=== PATIENT | female | born 1975 | race Caucasian/White ===

== ENCOUNTER → 2020-05-22 | Outpatient (CLI) | payer OTHER ==
[~2020-05-22] MED LIST: OMNIPAQUE 350 MG/ML, 100ML BOTTLE ONE
== END | disposition home or self-care (01) ==
LOC: RAD 16:40
PROVIDERS: ATTEND Physician Assistant
DX: E04.1 Nontoxic single thyroid nodule (principal); R22.0 Localized swelling, mass and lump, head; G43.109 Migraine with aura, not intractable, without status migrainosus
CPT/HCPCS: 70491; Q9967

== ENCOUNTER 2020-07-23 05:57 | Day surgery (SDC) | payer OTHER ==
[~2020-07-23] VITALS: Ht 157.5 cm; Wt 133.4 kg
[2020-07-23] MEDS ORDERED: CHLORHEXIDINE 15 ML UDC ONE (06:17)
[2020-07-23] MEDS ORDERED: MIDAZOLAM 1 MG/ML, 2ML ONE (06:35)
[2020-07-23] MEDS ORDERED: FENTANYL PF 250 MCG/5ML ONE ×2 (06:35→07:56)
[2020-07-23 06:39] VITALS: BP 115/83
[2020-07-23 06:45] LABS: HCG UR SG 1.025 (1.003-1.030)
[2020-07-23] MEDS ORDERED: CETI10CA PO (06:52)
[2020-07-23] MEDS ORDERED: LORAZEPAM PO (06:52)
[2020-07-23] MEDS ORDERED: PROZAC PO (06:52)
[2020-07-23] MEDS ORDERED: OXYcodone 5 MG/5 ML ORAL.SOL UDC PO PRN (07:00)
[2020-07-23] MEDS ORDERED: HYDROmorphone 1 MG/ML, 1ML INJ IVPush PRN (07:00)
[2020-07-23] MEDS ORDERED: hydrALAzine 20 MG/ML, 1ML IV PRN (07:00)
[2020-07-23] MEDS ORDERED: HALOPERIDOL 5 MG/ML IV PRN (07:00)
[2020-07-23] MEDS ORDERED: FENTANYL PF 100 MCG/2ML IV PRN (07:00)
[2020-07-23] MEDS ORDERED: MEPERIDINE/PF 25MG/0.5ML IVPush PRN (07:00)
[2020-07-23] MEDS ORDERED: morphine SULFATE 10 MG/ML, 1ML IVPush PRN (07:00)
[2020-07-23] MEDS ORDERED: LABETALOL 5MG/ML, 20ML IV PRN (07:00)
[2020-07-23] MEDS ORDERED: PROMETHAZINE 25 MG/ML, 1ML IVPush PRN (07:00)
[2020-07-23] MEDS ORDERED: ACETAMINOPHEN 325 MG TABLET PO PRN (07:00)
[2020-07-23] MEDS ORDERED: BUPIVACAINE/PF 0.5% ONE (07:19)
[2020-07-23] MEDS ORDERED: EPINEPHRINE 1 MG/ML, 1ML ONE (07:20)
[2020-07-23] MEDS ORDERED: LACTATED RINGERS 1,000 ML IV SCH (07:30)
[2020-07-23] MEDS ORDERED: CHLORHEXIDINE 15 ML UDC PO ONE (07:30)
[2020-07-23] MEDS ORDERED: PROPOFOL 10 MG/ML, 20ML ONE (07:55)
[2020-07-23] MEDS ORDERED: ROCURONIUM 10MG/ML,5ML ONE (07:55)
[2020-07-23] MEDS ORDERED: SUCCINYLCHOLINE 20 MG/ML, 10ML ONE (07:55)
[2020-07-23] MEDS ORDERED: GLYCOPYRROLATE 0.2MG/1ML, 5ML ONE (07:55)
[2020-07-23] MEDS ORDERED: CEFAZOLIN 1,000 MG ONE ×2 (07:55→09:09)
[2020-07-23] MEDS ORDERED: ONDANSETRON 2MG/ML, 2ML ONE (07:55)
[2020-07-23] MEDS ORDERED: NEOSTIGMINE 1 MG/ML, 10ML ONE (07:55)
[2020-07-23] MEDS ORDERED: DEXAMETHASONE 4 MG/ML, 1ML ONE (09:09)
[2020-07-23] MEDS ORDERED: HYDR-2214 PO (09:48)
== END 2020-07-23 11:15 | disposition home or self-care (01) ==
LOC: OUT 05:57
PROVIDERS: ATTEND Surgery
DX: R22.0 Localized swelling, mass and lump, head (principal); E11.9 Type 2 diabetes mellitus without complications; G47.30 Sleep apnea, unspecified; F17.210 Nicotine dependence, cigarettes, uncomplicated; E66.01 Morbid (severe) obesity due to excess calories; Z20.822 Contact with and (suspected) exposure to COVID-19; Z79.899 Other long term (current) drug therapy; Z88.0 Allergy status to penicillin
CPT/HCPCS: 21012; 81025; 87635; 88304; J0171; J0330; J0690; J1100; J2250; J2405; J2704; J2710; J3010; J7120; 88307

== ENCOUNTER 2020-08-06 05:47 | Day surgery (SDC) | payer OTHER ==
[~2020-08-06] VITALS: Ht 154.9 cm; Wt 133.0 kg
[~2020-08-06 05:47] MED LIST changes: +CETI10CA PO; +HYDR-2214 PO; +LORAZEPAM PO; -OMNIPAQUE 350 MG/ML, 100ML BOTTLE ONE; +PROZAC PO
[2020-08-06 06:47] VITALS: BP 125/73
[2020-08-06] MEDS ORDERED: CHLORHEXIDINE 15 ML UDC ONE (06:50)
[2020-08-06 06:52] VITALS: BP 125/73
[2020-08-06] MEDS ORDERED: BUPIVACAINE/PF 0.25% ONE (06:54)
[2020-08-06] MEDS ORDERED: EPINEPHRINE 1 MG/ML, 1ML ONE (06:54)
[2020-08-06] MEDS ORDERED: VANCOMYCIN 500 MG ONE (06:54)
[2020-08-06] MEDS ORDERED: GENTAMICIN 80 MG/2 ML ONE (06:54)
[2020-08-06] MEDS ORDERED: LORA-247 PO (06:58)
[2020-08-06] MEDS ORDERED: LACTATED RINGERS 1,000 ML IV SCH (07:00)
[2020-08-06] MEDS ORDERED: CHLORHEXIDINE 15 ML UDC PO ONE (07:00)
[2020-08-06 07:05] LABS: HCG UR SG 1.021 (1.003-1.030)
[2020-08-06] MEDS ORDERED: FENTANYL PF 250 MCG/5ML ONE (07:17)
[2020-08-06] MEDS ORDERED: MIDAZOLAM 1 MG/ML, 2ML ONE (07:17)
[2020-08-06] MEDS ORDERED: PROPOFOL 10 MG/ML, 20ML ONE (07:18)
[2020-08-06] MEDS ORDERED: LIDOCAINE-MPF 2% ,5ML ONE (07:20)
[2020-08-06] MEDS ORDERED: DEXAMETHASONE 4 MG/ML, 1ML ONE ×2 (07:20)
[2020-08-06] MEDS ORDERED: CEFAZOLIN 1,000 MG ONE ×2 (07:20)
[2020-08-06] MEDS ORDERED: ONDANSETRON 2MG/ML, 2ML ONE (07:20)
[2020-08-06] MEDS ORDERED: ROCURONIUM 10MG/ML,5ML ONE (07:20)
[2020-08-06] MEDS ORDERED: PROMETHAZINE 25 MG/ML, 1ML IVPush PRN (07:30)
[2020-08-06] MEDS ORDERED: DIPHENHYDRAMINE 50 MG/ML, 1ML IVPush PRN (07:30)
[2020-08-06] MEDS ORDERED: MEPERIDINE/PF 25MG/0.5ML IVPush PRN (07:30)
[2020-08-06] MEDS ORDERED: DIAZEPAM 5 MG/ML, 2ML IVPush PRN (07:30)
[2020-08-06] MEDS ORDERED: OXYcodone 5 MG/5 ML ORAL.SOL UDC PO PRN (07:30)
[2020-08-06] MEDS ORDERED: LABETALOL 5MG/ML, 20ML IV PRN (07:30)
[2020-08-06] MEDS ORDERED: HYDROmorphone 1 MG/ML, 1ML INJ IVPush PRN (07:30)
[2020-08-06] MEDS ORDERED: hydrALAzine 20 MG/ML, 1ML IV PRN (07:30)
[2020-08-06] MEDS ORDERED: FENTANYL PF 100 MCG/2ML IV PRN (07:30)
[2020-08-06] MEDS ORDERED: ACETAMINOPHEN 325 MG TABLET PO PRN (07:30)
[2020-08-06] MEDS ORDERED: ONDANSETRON 2MG/ML, 2ML IVPush PRN (07:30)
[2020-08-06] MEDS ORDERED: KETOROLAC 30 MG/1 ML ONE (09:36)
[2020-08-06] MEDS ORDERED: OXYcodone 5 MG/5 ML ORAL.SOL UDC ONE (09:37)
[2020-08-06] MEDS ORDERED: FENTANYL PF 100 MCG/2ML ONE (09:37)
[2020-08-06] MEDS ORDERED: NEOSTIGMINE 1 MG/ML, 10ML ONE (09:57)
[2020-08-06] MEDS ORDERED: GLYCOPYRROLATE 0.2MG/1ML, 5ML ONE (09:57)
[2020-08-06] MEDS ORDERED: KETOROLAC 30 MG/1 ML IV PRN (10:00)
== END 2020-08-06 12:35 | disposition home or self-care (01) ==
LOC: OUT 05:47
PROVIDERS: ATTEND Obstetrics & Gynecology Female Pelvic Medicine and Reconstructive Surgery
DX: N92.6 Irregular menstruation, unspecified (principal); D25.1 Intramural leiomyoma of uterus; N83.02 Follicular cyst of left ovary; N94.6 Dysmenorrhea, unspecified; R10.2 Pelvic and perineal pain; N39.3 Stress incontinence (female) (male); N81.11 Cystocele, midline; E66.01 Morbid (severe) obesity due to excess calories; I25.10 Atherosclerotic heart disease of native coronary artery without angina pectoris; E11.9 Type 2 diabetes mellitus without complications; G43.909 Migraine, unspecified, not intractable, without status migrainosus; J45.909 Unspecified asthma, uncomplicated; F41.9 Anxiety disorder, unspecified; Z88.8 Allergy status to other drugs, medicaments and biological substances; Z68.43 Body mass index [BMI] 50.0-59.9, adult; Z79.899 Other long term (current) drug therapy; Z98.84 Bariatric surgery status; Z20.822 Contact with and (suspected) exposure to COVID-19; Z98.890 Other specified postprocedural states; Z72.89 Other problems related to lifestyle; Z72.0 Tobacco use
CPT/HCPCS: 57265; 57282; 57288; 58552; 81025; 87635; 88307; C1771; J0171; J0690; J1100; J1580; J1885; J2250; J2405; J2704; J2710; J3010; J3370; J7120